=== PATIENT | male | born 1955 | race Caucasian/White ===

== ENCOUNTER → 2016-07-01 08:31 | Outpatient (CLI) | payer BC ==
[2016-05-01 11:51] VITALS: BMI 26.5
[~2016-07-01 08:31] MED LIST: ADDERALL XR 2020 MG PO; ASPIRIN EC81 M1 PO; ATIVAN2 MG PO; AXIRON30 MG/1.5; BYSTOLIC10 MG PO; COLACE100 MG PO; COZAAR25 MG; COZAAR50 MG PO; CYTOTEC100 MCG PO; ENDOCET 10-3251 TAB PO; LEXAPRO10 MG; MS CONTIN15 MG PO; OMEPRAZOLE20 M1 PO; PERCOCET 10/3251 TA1 PO; ROBAXIN-750750 MG PO; VALIUM5 MG PO; VOLTAREN75 MG PO
== END | disposition home or self-care (01) ==
LOC: D.CT 08:31
DX: T85.848A Pain due to other internal prosthetic devices, implants and grafts, initial encounter (principal)